=== PATIENT | male | born 1980 ===

== ENCOUNTER → 2018-08-07 13:37 | Outpatient (REF) | payer OTHER, SELFPAY | LOC: LAB 13:37 | PROVIDERS: Visit Provider Physician Assistant | DX: L40.0 Psoriasis vulgaris (principal) | CPT/HCPCS: 87070 ==

== ENCOUNTER → 2018-09-09 14:11 | Outpatient (REF) | payer OTHER, SELFPAY | LOC: LAB 14:11 | PROVIDERS: Visit Provider Physician Assistant | DX: L40.0 Psoriasis vulgaris (principal) | CPT/HCPCS: 87070; 87205 ==